=== PATIENT | female | born 1965 | race Caucasian/White ===

== ENCOUNTER 2021-12-15 06:06 | Day surgery (SDC) | payer OTHER ==
[~2021-12-15] VITALS: Ht 173 cm; Wt 84.0 kg
[~2021-12-15 06:06] MED LIST: AREDS 2 PO; CALCIUM 600 +1 EAC3 PO; DICLOFENAC SODI75 MG PO; GLUCOSAMINE &1 EACH PO; VITAMIN C1000 MG PO; VITAMIN D3125 MC1 PO
[2021-12-15 06:54] LABS: HCG (URINE) SCREEN NEGATIVE (NEGATIVE)
[2021-12-16 05:51] LABS: BASOPHIL 0.3 % (0-2); EOSINOPHIL 1.3 % (0-5); HCT 35.4 % (37.0-47.0); HGB 11.3 g/dl (12.5-16.0); MCH 29.1 pg (25.0-31.0); MCHC 31.9 g/dL (32.0-36.0); MCV 91.2 fL (78.0-100.0); MONOCYTE 9.4 % (0-12); MPV 9.6 fL (6.0-9.5); NEUTROPHIL 76.5 % (41-80); NRBC 0; PLT 279 K/uL (150-400); RBC 3.88 M/uL (4.20-5.40); RDW 13.9 % (11.5-14.0); WBC 10.9 K/uL (4.0-10.5)
[2021-12-16 06:13] LABS: BUN/CREAT RATIO (CALC) 17.5 RATIO; CREATININE 0.63 mg/dL (0.51-0.95); POTASSIUM 4.1 mmol/L (3.5-5.1)
[2021-12-16] MEDS ORDERED: FEOSOL325 MG PO (08:57)
[2021-12-16] MEDS ORDERED: ULTRA-LIGHT RO1 EACH XX (08:57)
[2021-12-16] MEDS ORDERED: NORCO 5-325 TA1 EACH PO (08:57)
[2021-12-16] MEDS ORDERED: XARELTO10 MG PO (08:57)
== END 2021-12-16 11:08 | disposition home or self-care (01) ==
LOC: FAS 06:06 → FMS 10:59 → FAS 12-16 11:08
PROVIDERS: Legal Medicine
DX: M17.11 Unilateral primary osteoarthritis, right knee (principal); M21.161 Varus deformity, not elsewhere classified, right knee; M25.761 Osteophyte, right knee; M67.261 Synovial hypertrophy, not elsewhere classified, right lower leg; G89.18 Other acute postprocedural pain; R41.0 Disorientation, unspecified; Z88.0 Allergy status to penicillin
CPT/HCPCS: 36415; 73560; 80048; 84703; 85025; 86850; 86900; 86901; 94010; 94760; 94762; 97162; 97165; 97530-GP; C1713; C1776; J0171; J1170; J1885; J2250; J2270; J2405; J2704; J2795; J3010; J7120